=== PATIENT | female | born 1995 | race Caucasian/White ===

== ENCOUNTER 2021-06-05 10:15 | Inpatient (IN) ==
[2021-06-05] MEDS ORDERED: Buffered Lidocaine 1% SYRIN 1 ml INTRADERM ONE (11:10)
[2021-06-05] MEDS ORDERED: Penicillin G Potassium IV 5,000,000 UNITS in NS 0.9% 100 ml BAG 100 ML IVPB ONE (11:10)
[2021-06-05 11:19] LABS: Urine Benzodiazepine Screen None Detected (None Detect); Urine Cannabinoids Screen None Detected (None Detect); Urine Opiates Screen None Detected (None Detect)
[2021-06-05] MEDS ORDERED: NS 0.9% 100 ml BAG 0 ML ONE (11:27)
[2021-06-05] MEDS ORDERED: Lactated Ringers 1000 ml BAG 1,000 ML IV ONE ×2 (11:31→16:50)
[2021-06-05] MEDS ORDERED: Oxytocin in LR 20 UNITS/1,000 ML BAG IVPB SCH ×2 (12:00→20:00)
[2021-06-05] MEDS ORDERED: Lactated Ringers 1000 ml BAG 1,000 ML IV SCH ×3 (12:00→20:00)
[2021-06-05] MEDS ORDERED: Penicillin G Potassium IV 3,000,000 UNITS in NS 0.9% 100 ml BAG 100 ML IVPB SCH (12:00)
[2021-06-05 12:06] LABS: ABS Lymphocytes 1.6 10^3/ul (1.0-4.8); ABS Monocytes 0.5 10^3/ul (0-0.8); ABS Neutrophils 5.5 10^3/ul (1.5-7.7); Eosinophil % 0.4 %; Hematocrit 34 % (35-47); Hemoglobin 11.6 g/dL (12.0-16.0); Lymphocyte % 20.4 %; Mean Corpuscular HGB Conc 34 g/dL (31-36); Mean Corpuscular Hemoglobin 28 pg (27-31); Mean Corpuscular Volume 81 fL (80-97); Mean Platelet Volume 8.7 fL (7.4-10.4); Nucleated Red Blood Cells % 0.1; Platelet Count 194 10^3/uL (150-450); Red Blood Count 4.18 10^6 /uL (3.70-4.87); Red Cell Distribution Width 14 % (10-15); White Blood Count 7.6 10^3/uL (3.5-10.8)
[2021-06-05] MEDS ORDERED: OBEPIDURAL 250 ML EPIDURAL ONE (15:08)
[2021-06-05] MEDS ORDERED: Ondansetron 4 mg VIAL 2 MG/ML 2 ml VIAL ONE (15:10)
[2021-06-05] MEDS: Ondansetron 4 mg VIAL 2 MG/ML 2 ml VIAL IV ONE ×2 (15:35→17:12)
[2021-06-05] MEDS ORDERED: Bupivacaine 0.25% SDV PF 10 ML VIAL INJ ONE (15:45)
[2021-06-05] MEDS ORDERED: Penicillin G Potassium IV 3,000,000 UNITS in NS 0.9% 100 ML IVPB SCH (16:00)
[2021-06-05] MEDS ORDERED: Phenylephrine 40 mcg/mL 10mL (400mcg) SYRINGE IV PUSH PRN ×2 (16:50)
[2021-06-05] MEDS ORDERED: Sodium Citrate/Citric Acid LIQ 15 ML UDC PO PRN (16:50)
[2021-06-05] MEDS ORDERED: OBEPIDURAL 250 ML EPIDURAL SCH (17:00)
[2021-06-05 18:39] LABS: Urine Appearance Clear; Urine Color Yellow; Urine Ketones 1+ (Negative); Urine Protein 1+(30 mg/dL) (Negative); Urine Specific Gravity 1.015 (1.002-1.030); Urine Urobilinogen Negative (Negative); Urine pH 6 (5-9)
[2021-06-05 18:40] LABS: Urine Bilirubin 1+ (Negative); Urine Blood Negative (Negative); Urine Glucose Negative (Negative); Urine Nitrite Negative (Negative)
[2021-06-05] MEDS ORDERED: Witch Hazel PAD JAR TOPICAL PRN (19:12)
[2021-06-05] MEDS ORDERED: Glycerin ADULT 2.4 gm SUPP PR PRN (19:12)
[2021-06-05] MEDS ORDERED: Dibucaine 1% OINT 28.35 GM TUBE PR PRN (19:12)
[2021-06-06 07:12] LABS: ABS Lymphocytes 1.8 10^3/ul (1.0-4.8); ABS Monocytes 0.6 10^3/ul (0-0.8); ABS Neutrophils 6.2 10^3/ul (1.5-7.7); Eosinophil % 0.5 %; Hematocrit 25 % (35-47); Hemoglobin 8.7 g/dL (12.0-16.0); Lymphocyte % 20.7 %; Mean Corpuscular HGB Conc 34 g/dL (31-36); Mean Corpuscular Hemoglobin 28 pg (27-31); Mean Corpuscular Volume 82 fL (80-97); Mean Platelet Volume 8.8 fL (7.4-10.4); Platelet Count 161 10^3/uL (150-450); Red Cell Distribution Width 14 % (10-15); White Blood Count 8.7 10^3/uL (3.5-10.8)
[2021-06-07] MEDS ORDERED: Butalb/Acetamin/Caff TAB 325-50-40MG PO PRN (09:27)
[2021-06-07 10:22] VITALS: BP 123/59
== END 2021-06-07 14:54 | disposition home or self-care (01) | DRG 560 ==
LOC: MCHOBOUT 10:15 → MCHOB 10:56
PROVIDERS: ADMIT Advanced Practice Midwife; ATTEND Advanced Practice Midwife